=== PATIENT | male | born 1955 ===

== ENCOUNTER 2019-12-16 09:05 | Outpatient (CLI) | payer MEDICARE, SELFPAY ==
--- NOTE | ~2019-12-16 | US_ITS ---
EXAMINATION: US renal BI DATE: 12/16/2019 09:47 INDICATION: Prostatitis TECHNIQUE: Multiple grayscale and Doppler ultrasound images of the kidneys were obtained. COMPARISON: CT, 05/18/2014 FINDINGS: The right kidney measures 11.7 x 5.9 x 5.6 cm. The left kidney measures 11.2 x 5.8 x 6.5 cm . The kidneys demonstrate normal parenchymal echogenicity. There is no hydronephrosis. The bladder is normal. The prostate measures approximately 4.4 x 3.3 x 4.5 cm. IMPRESSION: 1. Mildly prominent prostate without acute sonographic findings identified. Reviewed, dictated and finalized at location B.
== END 2019-12-16 09:06 | disposition home or self-care (01) ==
PROVIDERS: PCP Family Medicine; Visit Provider Urology
DX: N41.9 Inflammatory disease of prostate, unspecified (principal)
CPT/HCPCS: 76775

== ENCOUNTER 2022-01-13 10:01 | Emergency (ER) | payer MEDICARE, SELFPAY ==
--- NOTE | ~2022-01-13 | XR_ITS ---
EXAMINATION: XR chest 2V DATE: 01/13/2022 10:38 INDICATION: Productive cough. Metastatic disease to bone. TECHNIQUE: Frontal and lateral views of the chest were obtained. COMPARISON: CT abdomen and pelvis 05/18/2014 FINDINGS: There is no pneumonia, pleural effusion, or pneumothorax. The heart size is normal. There a re prominent paracardial fat pads. There is a right internal jugular port with tip in superior vena c deborah. There are old right rib fractures. IMPRESSION: 1. No acute cardiopulmonary disease. Reviewed, dictated and finalized at location A.
[2022-01-13 10:22] VITALS: BP 115/66; PULSE 95; RESP 20; TEMP 36.2; O2SAT 97
--- NOTE | 2022-01-13 10:27 | ED.URI ---
HPI - URI/Sore Throat General Chief Complaint: Upper Respiratory Infection Stated Complaint: fatigue,phelgmn Time Seen by Provider: 01/13/22 10:27 Source: patient Mode of arrival: ambulatory Limitations: no limitations History of Present Illness HPI Narrative: 66-year-old male with history of stage IV prostate cancer with mets to bone presents with complaint of cough, chest congestion for 4 days. Started taking Mucinex yesterday. Complain of generalized weakness. Denies fever chills. Shortness of breath with exertion. Is currently not doing any chemotherapy or radiation treatments. All systems reviewed and negative except as noted above. Related Data Home Medications Medication Instructions Recorded Confirmed aspirin 81 mg PO DAILY 01/13/22 01/13/22 darolutamide [Nubeqa] 300 mg PO BID 01/13/22 01/13/22 dexamethasone 2 mg PO DIRECTED 01/13/22 01/13/22 gabapentin 180 mg PO TID 01/13/22 01/13/22 melatonin 3 mg PO HS 01/13/22 01/13/22 oxycodone 15 mg PO Q3-6H 01/13/22 01/13/22 prochlorperazine maleate 10 mg PO DIRECTED 01/13/22 01/13/22 sennosides [senna] 8.6 mg PO TID 01/13/22 01/13/22 tamsulosin 0.4 mg PO BID 01/13/22 01/13/22 trazodone 50 mg PO HS 01/13/22 01/13/22 Allergies Allergy/AdvReac Type Severity Reaction Status Date / Time No Known Allergies Allergy Verified 01/13/22 10:28 Review of Systems Review of Systems: CONSTITUTIONAL: Denies fever, chills, or sweats. EYES: Denies visual changes, redness, or discharge. ENT: Denies rhinorrhea, congestion, sore throat, or otalgia. CARDIOVASCULAR: Denies chest pain, palpitations, or edema. RESPIRATORY: Reports cough and dyspnea with exertion. GASTROINTESTINAL: Denies abdominal pain, nausea, vomiting, or diarrhea. GENITOURINARY: Denies dysuria or hematuria. SKIN: Denies rash or itching. MUSCULOSKELETAL: Denies back pain, joint pain, or myalgia. NEUROLOGIC: Denies headache, numbness, or weakness. PSYCHIATRIC: Denies anxiety or depression. All other systems reviewed are negative, except as documented in HPI. [facility] Family History Family History (Updated 05/18/14 @ 07:13 by DOCTOR UNKNOWN) Mother Carcinoma of colon Family history of coronary artery disease Social History Social History Smoking status: Former smoker Smoking end date: 09/21/16 Alcohol intake: current Comments At time of signature, agree with nursing past medical, surgical, social and family history. There is no relevant family history pertinent to the presenting complaint. Exam Narrative: GENERAL: This is a well-nourished, well-developed patient. Patient is ill-appearing but in no distress. HEAD: normocephalic, atraumatic. EYES: PERRL. Sclera clear/white. Vision is grossly intact. EARS: External ears normal, auditory canals clear and without drainage, TMs normal without perforation. Hearing grossly intact. NOSE: External nose normal with no obvious nasal discharge, nares without redness, no rhinorrhea. THROAT: Mucous membranes moist, erythema to posterior pharynx with clear postnasal drainage. NECK: Neck supple, non-tender without lymphadenopathy, masses or thyromegaly. CARDIOVASCULAR: Regular rate and rhythm without murmurs, gallops, or rubs. RESPIRATORY: Coarse and congested lung sounds throughout all lung bowles on expiration. No respiratory distress. GASTROINTESTINAL: Abdomen soft, non-tender, nondistended. Bowel sounds are active. No hepato-splenomegaly, or palpable masses. No guarding. SKIN: warm, Dry, intact with no suspicious lesions or rash, good texture and turgor. NEURO: awake, alert, and oriented to person, place and time. There were no obvious focal neurologic abnormalities. EXTREMITIES: Normal range of motion to all extremities. . Course Course Level of Care: Express Care Visit Vital Signs Vital signs: Vital Signs Temperature 36.2 C L 01/13/22 10:22 Pulse Rate 95 01/13/22 10:22 Respiratory Rate 20 01/13/22 10:22 Blood Pressure 115/66 01/13/22 10:2
== END 2022-01-13 11:05 | disposition home or self-care (01) ==
PROVIDERS: Emergency Provider Nurse Practitioner Family
DX: J06.9 Acute upper respiratory infection, unspecified (principal)
CPT/HCPCS: 71046; 99213; G0463